=== PATIENT | male | born 1945 | race Caucasian/White ===

== ENCOUNTER → 2020-03-26 | Outpatient (CLI) | payer MEDICARE ==
--- NOTE | 2020-03-26 12:18 | Diagnostic Imaging Report ---
INDICATION: Left hip pain. Time of exam 9:44 AM 2 views left hip were obtained. Femoral acetabular alignment is normal. Joint spaces well maintained. Femoral head and neck are intact. No fracture or dislocation is identified. IMPRESSION: No acute bony abnormality is detected. Dictated by: Dictated on workstation # [id number]
== END ==
LOC: RAD FS 09:36
PROVIDERS: ATTEND Family Medicine
DX: M25.552 Pain in left hip (principal)
CPT/HCPCS: 73502